=== PATIENT | female | born 1995 | race Two or more races ===

== ENCOUNTER 2019-02-04 11:20 | Emergency (ER) | payer OTHER ==
[~2019-02-04] VITALS: Ht 170.2 cm; Wt 61.2 kg
[2019-02-04] MEDS ORDERED: CEFUROXIME250 MG PO (15:04)
== END 2019-02-04 15:11 | disposition home or self-care (01) ==
LOC: ER 11:20
DX: O98.512 Other viral diseases complicating pregnancy, second trimester (principal); B34.9 Viral infection, unspecified; Z34.02 Encounter for supervision of normal first pregnancy, second trimester

== ENCOUNTER 2019-04-03 16:10 | Inpatient (IN) | payer OTHER ==
[~2019-04-03] VITALS: Ht 170.2 cm; Wt 63.5 kg
[~2019-04-03 16:10] MED LIST: CEFUROXIME250 MG PO
[2019-04-03] MEDS ORDERED: IRON325 MG PO (16:31)
[2019-04-03] MEDS ORDERED: PRENATAL TABLE1 EAC1 PO (16:31)
== END 2019-04-06 14:44 | DRG 832 ==
LOC: LDR 16:10
PROVIDERS: ADMIT Specialist
PROC: 4A1HXCZ Monitoring of Products of Conception, Cardiac Rate, External Approach (ICD-10-PCS; principal; 2019-04-03)
DX: O60.03 Preterm labor without delivery, third trimester (principal); O23.33 Infections of other parts of urinary tract in pregnancy, third trimester; B96.29 Other Escherichia coli [E. coli] as the cause of diseases classified elsewhere; O99.013 Anemia complicating pregnancy, third trimester; D64.89 Other specified anemias

== ENCOUNTER → 2021-02-03 | Outpatient (CLI) | payer OTHER ==
[~2021-02-03] MED LIST changes: +IRON325 MG PO; +PRENATAL TABLE1 EAC1 PO
== END | disposition home or self-care (01) ==
LOC: NST 16:51
PROVIDERS: ATTEND Obstetrics & Gynecology
DX: Z34.02 Encounter for supervision of normal first pregnancy, second trimester (principal)